=== PATIENT | male | born 1950 | race Hispanic/Latino ===

== ENCOUNTER 2021-08-14 05:45 | Day surgery (SDC) | payer OTHER ==
[~2021-08-14 05:45] MED LIST: AMIO200T68 PO; ATOR10 PO; BRIM5DRO OU; BUME2TAB5 PO; DAPA5TAB PO; DIGO125T71 PO; FOLI0.8T2 PO; FOLI1 PO; INSU100I24 SQ; LATA7.5D OU; LEVO25CA4 PO; LINA5TAB PO; METO-391 PO; METO5TAB7 PO; PANT40TA54 PO; SACU1TAB PO; WARF3TAB59 PO
[2021-08-14 06:03] VITALS: BP 116/45
[2021-08-14] MEDS ORDERED: 0.9%NACL 1000ML 1,000 ML IV ONE (06:19)
[2021-08-14] MEDS ORDERED: PROPOFOL 10 MG/ML 20ML VIAL IV ONE (07:09)
[2021-08-14] MEDS ORDERED: LIDOCAINE HCL 1% 20 ML VIAL ONE (07:10)
[2021-08-14 07:25] VITALS: BP 103/57
[2021-08-14 07:30] VITALS: BP 107/63
[2021-08-14 07:35] VITALS: BP 107/61
[2021-08-14 07:40] VITALS: BP 113/66
[2021-08-14 07:55] VITALS: BP 114/67
== END 2021-08-14 08:00 | disposition home or self-care (01) ==
LOC: DAH 05:45
PROVIDERS: ATTEND Internal Medicine
DX: D50.9 Iron deficiency anemia, unspecified (principal); Z20.822 Contact with and (suspected) exposure to COVID-19; R19.5 Other fecal abnormalities; K29.50 Unspecified chronic gastritis without bleeding; K31.7 Polyp of stomach and duodenum; K31.89 Other diseases of stomach and duodenum; K75.81 Nonalcoholic steatohepatitis (NASH); I11.0 Hypertensive heart disease with heart failure; I50.9 Heart failure, unspecified; I25.10 Atherosclerotic heart disease of native coronary artery without angina pectoris; I48.91 Unspecified atrial fibrillation; E11.9 Type 2 diabetes mellitus without complications; Z95.0 Presence of cardiac pacemaker; Z86.010 Personal history of colon polyps; Z90.49 Acquired absence of other specified parts of digestive tract; Z95.1 Presence of aortocoronary bypass graft; Z98.890 Other specified postprocedural states; Z79.899 Other long term (current) drug therapy; Z79.01 Long term (current) use of anticoagulants; Z95.2 Presence of prosthetic heart valve
CPT/HCPCS: 43239; 43255; 82948 ×2; 87635; 88305; 88342; A4215 ×2; A4221; A4222; A4223; A4606; A4620; A4649; A4663; C9803; J2704; J7030

== ENCOUNTER → 2022-01-11 | Outpatient (CLI) | payer OTHER | END | disposition home or self-care (01) | LOC: RAH 13:53 | PROVIDERS: ATTEND Internal Medicine | DX: I11.0 Hypertensive heart disease with heart failure (principal); I50.22 Chronic systolic (congestive) heart failure; I36.1 Nonrheumatic tricuspid (valve) insufficiency; E78.5 Hyperlipidemia, unspecified; E11.9 Type 2 diabetes mellitus without complications; E66.9 Obesity, unspecified; Z95.0 Presence of cardiac pacemaker; Z95.1 Presence of aortocoronary bypass graft; Z95.2 Presence of prosthetic heart valve | CPT/HCPCS: 93306 ==

== ENCOUNTER → 2022-11-20 | Outpatient (CLI) | payer OTHER | END | disposition home or self-care (01) | LOC: RAH 07:40 | PROVIDERS: ATTEND Internal Medicine Gastroenterology | DX: K42.9 Umbilical hernia without obstruction or gangrene (principal); R16.2 Hepatomegaly with splenomegaly, not elsewhere classified; R18.8 Other ascites; K46.9 Unspecified abdominal hernia without obstruction or gangrene; K74.60 Unspecified cirrhosis of liver; M47.815 Spondylosis without myelopathy or radiculopathy, thoracolumbar region; J84.10 Pulmonary fibrosis, unspecified; R91.8 Other nonspecific abnormal finding of lung field | CPT/HCPCS: 74176 ==

== ENCOUNTER 2022-12-14 15:18 | Emergency (ER) | payer OTHER ==
[~2022-12-14] VITALS: Ht 165.1 cm; Wt 85.7 kg
[2022-12-14] MEDS ORDERED: LIDOP TP (16:55)
[2022-12-14 18:05] LABS: BASOPHILS % (AUTO) 0.6 % (0.0-5.0); EOSINOPHILS % (AUTO) 0.6 % (0.0-8.0); HEMATOCRIT 29.1 % (42-54); LYMPHOCYTES % (AUTO) 7.2 % (21.0-51.0); MEAN CORPUSCULAR HEMOGLOBIN 26.1 pg (27.0-33.0); MEAN CORPUSCULAR HGB CONC 31.6 g/dL (32.0-36.0); MEAN CORPUSCULAR VOLUME 82.4 fL (79-99); MONOCYTES % (AUTO) 11.9 % (3.0-13.0); PLATELET COUNT (AUTO) 145 K/uL (130-400); RED BLOOD CELL COUNT(AUTO) 3.53 MIL/uL (4.50-6.20); RED CELL DISTRIBUTION WIDTH 16.7 % (11.0-15.5); WHITE BLOOD COUNT (AUTO) 6.9 K/uL (4.8-10.8)
[2022-12-14 18:15] LABS: INR 1.49 (0.85-1.15); PROTHROMBIN TIME 15.9 SEC (9.6-11.6)
[2022-12-14 18:16] LABS: CREATININE 1.9 mg/dL (0.5-1.5); PARTIAL THROMBOPLASTIN TIME 33.4 SEC (26.3-35.5); POTASSIUM 4.7 mmol/L (3.5-5.1)
[2022-12-14 18:23] LABS: APPEARANCE,URINE CLEAR (CLEAR); BILIRUBIN,URINE NEGATIVE (NEGATIVE); COLOR,URINE LIGHT-YELLOW (YELLOW); GLUCOSE, URINE (UA) 300 mg/dL (NEGATIVE); KETONES,URINE NEGATIVE (NEGATIVE); LEUKOCYTE ESTERASE ,URINE NEGATIVE Leu/uL (NEGATIVE); NITRATE,URINE NEGATIVE (NEGATIVE); OCCULT BLOOD,URINE NEGATIVE (NEGATIVE); PROTEIN,URINE NEGATIVE (NEGATIVE); UROBILINOGEN,URINE 0.2 mg/dL (0.2-1.0)
[2022-12-14 18:23] LABS: ALBUMIN 3.1 g/dL (3.5-5.0); TOTAL PROTEIN, SERUM 7.7 g/dL (6.0-8.3)
[2022-12-14 18:30] LABS: SQUAMOUS EPITHELIAL CELL,UR RARE /HPF (0-2); WBC,URINE 0-1 /HPF (0-1)
[2022-12-14] MEDS ORDERED: MECLIZINE HCL 25 MG TABLET PO ONE (18:30)
[2022-12-14 19:09] VITALS: BP 134/65
[2022-12-14] MEDS ORDERED: MECL-160 PO (19:49)
== END 2022-12-14 19:55 | disposition home or self-care (01) ==
LOC: EDH 15:18
DX: S20.211A Contusion of right front wall of thorax, initial encounter (principal); S09.90XA Unspecified injury of head, initial encounter; I11.0 Hypertensive heart disease with heart failure; I50.9 Heart failure, unspecified; E78.00 Pure hypercholesterolemia, unspecified; Z79.01 Long term (current) use of anticoagulants; E11.9 Type 2 diabetes mellitus without complications; W22.8XXA Striking against or struck by other objects, initial encounter; Y93.89 Activity, other specified; Y92.89 Other specified places as the place of occurrence of the external cause; Y99.8 Other external cause status; Z79.4 Long term (current) use of insulin; Z79.84 Long term (current) use of oral hypoglycemic drugs; Z79.899 Other long term (current) drug therapy; Z95.1 Presence of aortocoronary bypass graft; Z95.2 Presence of prosthetic heart valve; Z95.810 Presence of automatic (implantable) cardiac defibrillator
CPT/HCPCS: 36415; 70450; 71100; 80053; 81001; 84484; 85025; 85610; 85730; 93005

== ENCOUNTER → 2023-01-08 | Outpatient (CLI) | payer OTHER ==
[~2023-01-08] MED LIST changes: +LIDOP TP; +MECL-160 PO
== END | disposition home or self-care (01) ==
LOC: RAH 10:29
PROVIDERS: ATTEND Internal Medicine Gastroenterology
DX: R11.2 Nausea with vomiting, unspecified (principal); R10.9 Unspecified abdominal pain
CPT/HCPCS: 78264; A9541

== ENCOUNTER 2023-03-04 17:29 | Emergency (ER) | payer OTHER ==
[~2023-03-04] VITALS: Ht 162.6 cm; Wt 42.6 kg
[~2023-03-04 17:29] MED LIST changes: -BUME2TAB5 PO; +ERGO500093 PO; -LEVO25CA4 PO; +LEVO50CA4 PO; -METO-391 PO; -METO5TAB7 PO; +METO75TA PO; +VERI5TAB PO; -WARF3TAB59 PO
[2023-03-04 18:55] LABS: MEAN CORPUSCULAR HEMOGLOBIN 26.2 pg (27.0-33.0); MEAN CORPUSCULAR HGB CONC 29.6 g/dL (32.0-36.0); MEAN CORPUSCULAR VOLUME 88.5 fL (79-99); PLATELET COUNT (AUTO) 142 K/uL (130-400); RED BLOOD CELL COUNT(AUTO) 3.05 MIL/uL (4.50-6.20); RED CELL DISTRIBUTION WIDTH 16.6 % (11.0-15.5); WHITE BLOOD COUNT (AUTO) 5.9 K/uL (4.8-10.8)
[2023-03-04] MEDS ORDERED: METOCLOPRAMIDE 10 MG/2 ML VIAL IVP ONE (19:00)
[2023-03-04] MEDS ORDERED: MORPHINE 2 MG SYG IVP ONE (19:00)
[2023-03-04] MEDS ORDERED: LACTATED RINGERS 1000ML 1,000 ML IV ONE (19:00)
[2023-03-04] MEDS ORDERED: FAMOTIDINE 20MG TAB PO ONE (19:00)
[2023-03-04 19:15] LABS: CREATININE 2.8 mg/dL (0.5-1.5); POTASSIUM 4.9 mmol/L (3.5-5.1)
[2023-03-04 19:24] LABS: ALBUMIN 2.6 g/dL (3.5-5.0); TOTAL PROTEIN, SERUM 7.4 g/dL (6.0-8.3)
[2023-03-05 01:46] VITALS: BP 106/52; PULSE 60; RESP 18
== END 2023-03-05 01:49 | disposition home or self-care (01) ==
LOC: EDH 17:29
DX: K42.9 Umbilical hernia without obstruction or gangrene (principal); I11.0 Hypertensive heart disease with heart failure; E11.9 Type 2 diabetes mellitus without complications; E78.00 Pure hypercholesterolemia, unspecified; Z79.4 Long term (current) use of insulin; Z79.84 Long term (current) use of oral hypoglycemic drugs; Z79.890 Hormone replacement therapy; Z79.899 Other long term (current) drug therapy; Z95.1 Presence of aortocoronary bypass graft; Z95.2 Presence of prosthetic heart valve; Z95.810 Presence of automatic (implantable) cardiac defibrillator
CPT/HCPCS: 99285; 74176; 96374; 96375; 84484; 80053; 85027; 36415; 93005; J2270; J2765